=== PATIENT | male | born 1965 | race Caucasian/White ===

== ENCOUNTER 2019-10-06 22:30 | Inpatient (IN) | payer OTHER, BC ==
[~2019-10-06] VITALS: Ht 182.9 cm; Wt 123.4 kg
[2019-10-06 22:45] VITALS: Ht 182.9 cm; Wt 123.4 kg
[2019-10-06 23:46] LABS: BASOPHIL % 0.9 % (0-2); PLATELET COUNT 244 x10^3mcL (130-400); RED CELL DISTRIBUTION WIDTH 13.2 % (11.5-14.5)
[2019-10-07 00:48] LABS: CALCIUM 8.8 mg/dL (8.5-10.1); CARBON DIOXIDE 26.6 mmol/L (21-32); CHLORIDE SERUM 104 mmol/L (98-107); CREATININE SERUM 0.9 mg/dL (0.7-1.3); GFR1 > 60 mL/min; GLUCOSE SERUM 170 mg/dL (74-106); POTASSIUM SERUM 3.8 mmol/L (3.5-5.1); SODIUM SERUM 141 mmol/L (136-145)
[2019-10-07 00:53] LABS: ALBUMIN 3.5 g/dL (3.4-5.0); ALKALINE PHOSPHATASE 68 U/L (46-116); ALT/SGPT 60 U/L (16-63); AST/SGOT 31 U/L (15-37); BILIRUBIN TOTAL 0.3 mg/dL (0.20-1.00); TOTAL PROTEIN, SERUM 7.4 g/dL (6.4-8.2)
[2019-10-07 02:41] VITALS: BP 145/72
[2019-10-07 05:42] VITALS: BP 129/70
[2019-10-07 05:50] LABS: microscopic required? NO
[2019-10-07 06:10] LABS: urine erythrocyte NEGATIVE (NEGATIVE)
[2019-10-07 06:24] LABS: AMPHETAMINE QUAL UR NONE DETECTED (See below)
[2019-10-07 06:27] LABS: BASOPHIL % 0.8 % (0-2); PLATELET COUNT 248 x10^3mcL (130-400); RED CELL DISTRIBUTION WIDTH 13.4 % (11.5-14.5)
[2019-10-07 07:01] LABS: CALCIUM 8.9 mg/dL (8.5-10.1); CHLORIDE SERUM 107 mmol/L (98-107); CREATININE SERUM 0.9 mg/dL (0.7-1.3); GFR1 > 60 mL/min; GLUCOSE SERUM 142 mg/dL (74-106); MAGNESIUM 2.2 mg/dL (1.8-2.4); PHOSPHOROUS 3.4 mg/dL (2.5-4.9); POTASSIUM SERUM 4.4 mmol/L (3.5-5.1); SODIUM SERUM 141 mmol/L (136-145)
[2019-10-07 07:16] VITALS: BP 106/64
[2019-10-07 11:42] VITALS: BP 123/75
[2019-10-07 15:30] VITALS: BP 124/72
[2019-10-07 19:32] VITALS: BP 127/77
[2019-10-08 05:13] VITALS: BP 113/72
[2019-10-08 06:34] LABS: BASOPHIL % 1.2 % (0-2); PLATELET COUNT 240 x10^3mcL (130-400); RED CELL DISTRIBUTION WIDTH 13.8 % (11.5-14.5)
[2019-10-08 07:08] LABS: CARBON DIOXIDE 28.7 mmol/L (21-32); CHLORIDE SERUM 105 mmol/L (98-107); GFR1 > 60 mL/min; GLUCOSE SERUM 135 mg/dL (74-106); PHOSPHOROUS 3.5 mg/dL (2.5-4.9); POTASSIUM SERUM 4.5 mmol/L (3.5-5.1); SODIUM SERUM 142 mmol/L (136-145)
[2019-10-08 07:47] LABS: MAGNESIUM 2.2 mg/dL (1.8-2.4)
[2019-10-08 08:02] VITALS: BP 119/72
[2019-10-08 11:48] VITALS: BP 157/92
[2019-10-08] MEDS ORDERED: LIPI10 PO (12:51)
[2019-10-08] MEDS ORDERED: ZES5 PO (12:51)
[2019-10-08 13:39] VITALS: BP 125/67
== END 2019-10-08 14:02 | disposition home or self-care (01) | DRG 880 ==
LOC: ED 22:30 → DU 10-07 01:18
PROVIDERS: Emergency Medicine; ADMIT Internal Medicine
DX: F41.9 Anxiety disorder, unspecified (principal); E11.65 Type 2 diabetes mellitus with hyperglycemia; R03.0 Elevated blood-pressure reading, without diagnosis of hypertension; E66.9 Obesity, unspecified; Z68.36 Body mass index [BMI] 36.0-36.9, adult; Z79.84 Long term (current) use of oral hypoglycemic drugs
CPT/HCPCS: 83880; 90658; G0378; Q0092